=== PATIENT | female | born 1970 | race Caucasian/White ===

== ENCOUNTER 2024-01-24 09:07 | Outpatient (CLI) | payer BC, SELFPAY ==
--- NOTE | 2024-01-24 09:14 | XR_ITS ---
PROCEDURE INFORMATION: Exam: XR Right Wrist Exam date and time: 01/24/2024 9:19 AM Age: 53 years old Clinical indication: Pain; Wrist; Right; Additional info: Right wrist pain TECHNIQUE: Imaging protocol: Radiologic exam of the right wrist. Views: 3 or more views. COMPARISON: No relevant prior studies available. FINDINGS: Bones/joints: Degenerative changes in the carpal bones and radiocarpal joint. There is no evidence of acute fracture.There is no evidence of malalignment or dislocation. Soft tissues: Normal. IMPRESSION: There is no evidence of acute fracture.There is no evidence of malalignment or dislocation.
--- NOTE | 2024-01-24 09:14 | XR_ITS ---
PROCEDURE INFORMATION: Exam: XR Left Wrist Exam date and time: 01/24/2024 9:19 AM Age: 53 years old Clinical indication: Pain; Wrist; Left; Additional info: Left wrist pain TECHNIQUE: Imaging protocol: Radiologic exam of the left wrist. Views: 3 or more views. COMPARISON: No relevant prior studies available. FINDINGS: Bones/joints: There is no evidence of acute fracture.There is no evidence of malalignment or dislocation. Soft tissues: Soft tissue swelling of the wrist IMPRESSION: There is no evidence of acute fracture.There is no evidence of malalignment or dislocation.
== END 2024-01-24 23:59 | disposition home or self-care (01) ==
LOC: RAD 09:11
PROVIDERS: PCP Family Medicine; Visit Provider Orthopaedic Surgery
DX: M25.532 Pain in left wrist (principal); M25.531 Pain in right wrist
CPT/HCPCS: 73110

== ENCOUNTER 2024-02-10 08:57 | Outpatient (CLI) | payer BC, SELFPAY ==
--- NOTE | 2024-02-10 09:57 | ECG_ITS ---
APPROVED REPORT Exam: Resting ECG HR:64 bpm ECG Measurements Heart Rate 64 AXES WY 190 P 38 QRSd 72 QRS 1 QT 364 T 29 QTc 373 Conclusion SINUS RHYTHM LOW QRS VOLTAGE IN PRECORDIAL LEADS [QRS DEFLECTION < 1.0 mV IN CHEST LEADS] BORDERLINE ECG UNCONFIRMED REPORT Electronically signed by : Juancarlos Malin MD 02/24/2024 14:15:10
[2024-02-10 10:02] VITALS: BMI 31.6
[2024-02-10 10:13] LABS: Basophils # 0.1 K/mm3 (0-0.2); Basophils % 1.1 % (0.1-2.0); Eosinophils # 0.1 K/mm3 (0.0-0.4); Eosinophils % 2.4 % (0.1-12.0); Hematocrit 43.5 % (37.0-47.0); Lymphocytes # 1.6 K/mm3 (0.7-4.5); Lymphocytes % 39.1 % (10-50); Mean Corpuscular HGB Conc 34.4 g/dL (31.8-35.4); Mean Corpuscular Hemoglobin 31.6 pg (27.0-31.2); Mean Corpuscular Volume 91.7 fl (81-99); Mean Platelet Volume 9.1 fl (7.4-10.4); Monocytes # 0.2 K/mm3 (0.1-1.0); Monocytes % 5.9 % (1.7-9.3); Neutrophils # 2.1 K/mm3 (1.8-7.8); Neutrophils % 51.5 % (37.0-80.0); Platelet Count 231 K/mm3 (142-424); Red Blood Count 4.74 M/mm3 (4.20-5.40); White Blood Count 4.1 K/mm3 (4.8-10.8)
[2024-02-10 10:21] LABS: Chloride 103 mmol/L (98-107); Potassium 4.1 mmoL/L (3.5-5.1); Sodium 140 mmol/L (136-145)
[2024-02-10 10:24] LABS: Anion Gap 11.1 mEq/L (5-15); Blood Urea Nitrogen 11 mg/dl (7-17); Calcium 9.4 mg/dl (8.4-10.2); Carbon Dioxide 30 mmol/L (22.0-30.0); Creatinine Clearance Estimated 111 mL/min (50-200); Estimated Glomerular Filt Rate 75 ml/min (>60); GFR (African American) 91 ML/MIN (>60); Glucose 114 mg/dl (74-100)
== END 2024-02-10 23:59 | disposition home or self-care (01) ==
LOC: PREOP 08:58
PROVIDERS: Nurse Anesthetist, Certified Registered; PCP Family Medicine; Visit Provider Orthopaedic Surgery
DX: R94.31 Abnormal electrocardiogram [ECG] [EKG] (principal)
CPT/HCPCS: 80048; 85025; 93005

== ENCOUNTER 2024-02-15 07:00 | Day surgery (SDC) | payer BC, SELFPAY ==
[2024-02-10 09:41] VITALS: BMI 31.6
[2024-02-15] VITALS (11 sets, daily range): BP systolic 111–155; BP diastolic 44–91; PULSE 70–85; RESP 14–18; TEMP 36.1–36.6; O2SAT 92–98
[2024-02-15] MEDS: LACTATED RINGERS 1000ML 1,000 ML 100 ML IV (07:23)
--- NOTE | 2024-02-15 07:58 | EXP.ANES.CKL ---
[facility] Disclaimer: The information contained in this section may have been updated after the patient was seen, as this information can be updated by other users. Medical History History of breast implant removal GUERA on CPAP TIA (transient ischemic attack) Surgical History History of breast implant History of abdominoplasty History of History of back surgery Family History Other Family history of hypertension Social History Smoking Status: Never smoker alcohol intake: never substance use type: denies use current occupational status: unemployed and retired Travel in the last 8 weeks: None [facility] Anesthesia Checklist Patient Identification Patient Identification: Arm Band Structural Data Admitted From: Home Planned Operative Procedure/s: Right Carpal Tunnel Release Consent for Planned Operative Procedure(s) Verified: Yes Verified Documents: Surgical Consent and History and Physical NPO Status Verified Time NPO: 00:00 Additional verifications Anesthesia Reactions: No Hx Blood Transfusions: Yes Blood Transfusion Reaction: No Airway Assessment Mallampati Score:: Class III C-Spine Mobility Assessed: Yes TMJ Mobility Assessed: Yes Dentition: Good Dentition Neurological Assessment Level of Consciousness: Awake, Alert and Appropriate Anesthesia Plan Anesthesia Risk discussed: Yes Anesthesia Plan: Verified ASA Class: II Anesthesia Type: General
[2024-02-15] MEDS: CEFAZOLIN SODIUM 2 GM in 0.9 % SODIUM CHLORIDE 100 ML IV (08:20)
[2024-02-15] MEDS: LIDOCAINE 1% W/EPI 1:100,000 20ML VIAL 20 ML (08:42)
--- NOTE | 2024-02-15 08:59 | P.OP_ITS ---
Date of procedure: 02/15/24 Pre-op Diagnosis:: Right carpal tunnel syndrome Post-op Diagnosis:: Same Procedure performed:: Right endoscopic carpal tunnel release Surgeon:: Ebenezer Romero DO FARM CONTRACTOR:: Marcia Bernard Anesthesia: LMA Estimated blood loss (mL): 0 Operative findings:: See dictation Operative note:: Patient identified preoperatively. Right wrist marked with yes my initials. Transported to operative suite. Patient given general anesthesia LMA placed. Right upper extremity prepped and draped normal sterile fashion. Once prepped and draped final operative timeout performed to identify proper patient p rocedure and extremity. Everyone involved the case agreed. There were no counter indications to beginning. Did receive preoperative antibiotics. Marking pen was used to linda plan incision over the volar wrist crease. Esmarch was used to exsanguinate the extremity, pneumatic tourniquet inflated to 250 mmHg. Skin knife is used to incise through skin, dissection is taken down with retractors to identify the most proximal aspect the transverse carpal ligament. Once identified the small dilator followed by the larger dilator followed by the 4.0 mm sled was placed into the carpal tunnel. Transverse carpal ligament clearly seen in the superior aspect of the camera. Probe was used to identify the most distal aspect of the transverse carpal ligament rasp was used to remove soft tissue from the undersurface and a curved blade from the [employer] endoscopic carpal tunnel system was utilized to open transverse carpal ligament. Irrigation of the wound performed skin closed with interrupted 4-0 Monocryl with Steri-Strips sterile hand dressing placed patient waken anesthesia taken recovery in stable condition Condition: stable Disposition: PACU Complications:: None apparent
--- NOTE | 2024-02-15 09:06 | EXP.ANES.I ---
[facility] Anesthesia Record Part I Anesthesia Record I Intake, IV Amount: 400 Hydration: Adequate Estimated blood loss (mL): 5 Urine output (mL): 0 Blood Products used (#): none Blood Pressure: 117/44 SaO2: 92 Pulse Rate: 77 Airway Patency: Patent Respiratory Rate: 14 Temperature: 96.9 F Patient is:: Drowsy, Oral/Nasal airway (9.[address] upon arrival to PACU. Removed @09:04) and Stable Stable to PACU at:: 09:07
--- NOTE | 2024-02-15 14:36 | P.PNANES_ITS ---
[facility] Anesthesia Record Part II Anesthesia Record Part II Discharge Time: 09:32 Destination: Surgical Day Care (OP Surgery) PACU nurse assessment reviewed?: Yes Patient Condition:: Good Anesthesia Complications:: None Swallowing reflex intact?: Yes Airway Patency: Patent Cyanosis?: No Blood Pressure: 124/75 SaO2: 98 Respiratory Rate: 16 Pulse Rate: 73 Temperature: 96.9 F Mental Status: Alert & Oriented Pain level:: 0 Nausea and/or vomitting:: None Intake, IV Amount: 400 Hydration: Adequate
== END 2024-02-15 10:04 | disposition home or self-care (01) ==
PROVIDERS: PCP Family Medicine; Visit Provider Orthopaedic Surgery
PROC: (CPT 64721; principal; 2024-02-15 08:30)
DX: G56.01 Carpal tunnel syndrome, right upper limb (principal)
CPT/HCPCS: 29848; 96374; J0690; J1100; J1885; J2250; J2405; J3010; J7120

== ENCOUNTER 2024-03-14 09:07 | Day surgery (SDC) | payer BC, SELFPAY ==
[2024-03-13 09:30] VITALS: BMI 31.6
[2024-03-14 09:36] VITALS: BP 135/63; PULSE 78; RESP 18; TEMP 36.3; O2SAT 98
[2024-03-14] MEDS: LACTATED RINGERS 1000ML 1,000 ML 100 ML IV (09:48)
--- NOTE | 2024-03-14 11:08 | EXP.ANES.CKL ---
[facility] Disclaimer: The information contained in this section may have been updated after the patient was seen, as this information can be updated by other users. Medical History Sleep apnea History of gastroesophageal reflux (GERD) History of breast implant removal GUERA on CPAP TIA (transient ischemic attack) Surgical History History of breast implant History of abdominoplasty History of History of back surgery Family History Other Family history of hypertension Social History Smoking Status: Never smoker alcohol intake: never substance use type: denies use current occupational status: retired Travel in the last 8 weeks: None Have you lived/traveled outside [place] in past 30 days?: No Contact w/someone who lives/traveled outside US past 30 days?: No Exposure to someone with infectious disease in past 14 days?: No Do you have a fever (greater than 100.4 F or 38 C)?: No Have you tested positive for COVID-19: No Exposed to someone with COVID-19 in past 14 days?: No Do you have a sore throat?: No Do you have a cough?: No Do you have any weakness?: No Are you experiencing any nausea/vomitting?: No Do you have any diarrhea?: No Are you experiencing any unusual bleeding?: No Do you have any muscle aches/pain?: No Do you have any abdominal pain?: No Are you experiencing loss of taste or smell?: No [facility] Anesthesia Checklist Patient Identification Patient Identification: Arm Band Structural Data Admitted From: Home Planned Operative Procedure/s: Left Carpal Tunnel Release Consent for Planned Operative Procedure(s) Verified: Yes Verified Documents: Surgical Consent and History and Physical NPO Status Verified Time NPO: 00:00 Additional verifications Anesthesia Reactions: No Hx Blood Transfusions: Yes Blood Transfusion Reaction: No Airway Assessment Mallampati Score:: Class II C-Spine Mobility Assessed: Yes TMJ Mobility Assessed: Yes Dentition: Good Dentition Neurological Assessment Level of Consciousness: Awake, Alert and Appropriate Anesthesia Plan Anesthesia Risk discussed: Yes Anesthesia Plan: Verified ASA Class: II Anesthesia Type: MAC
[2024-03-14] MEDS: CEFAZOLIN SODIUM 2 GM in 0.9 % SODIUM CHLORIDE 100 ML IV (12:06)
[2024-03-14] MEDS: LIDOCAINE 1% W/EPI 1:100,000 20ML VIAL 20 ML (12:10)
--- NOTE | 2024-03-14 12:21 | P.OP_ITS ---
Date of procedure: 03/14/24 Pre-op Diagnosis:: Left carpal tunnel syndrome Post-op Diagnosis:: Same Procedure performed:: Left endoscopic carpal tunnel release Surgeon:: Ebenezer Romero DO Electronics Engineer(s):: Surya CARLTON BEZEL CUTTER:: Jeanna Ordoñez Anesthesia: MAC and local Estimated blood loss (mL): 0 Operative findings:: See dictation Operative note:: Patient identified preoperatively. Left wrist marked with yes my initials. Transported to operative suite. Patient given sedation Left upper extremity prepped and draped normal sterile fashion. Once prepped and draped final operative timeout performed to identify proper patient procedure and extremity. Everyone involved the case agreed. There were no counter indications to beginning. Did receive preoperative antibiotics. Marking pen was used to linda plan incision over the volar wrist crease. Local anesthesia 1% lidocaine with epinephrine infiltrated to the incision site and transverse carpal ligament. Esmarch was used to exsanguinate the extremity, pneumatic tourniquet inflated to 250 mmHg. Skin knife is used to incise through skin, dissection is taken down with retractors to identify the most proximal aspect the transverse carpal ligament. Once identified the small dilator followed by the larger dilator followed by the 4.0 mm sled was placed into the carpal tunnel. Transverse carpal ligament clearly seen in the superior aspect of the camera. Probe was used to identify the most distal aspect of the transverse carpal ligament rasp was used to remove soft tissue from the undersurface and a curved blade from the [employer] endoscopic carpal tunnel system was utilized to open transverse carpal ligament. Irrigation of the wound performed skin closed with interrupted 4-0 Monocryl with Steri-Strips sterile hand dressing placed patient waken anesthesia taken recovery in stable condition Condition: stable Disposition: PACU Complications:: None apparent
[2024-03-14 12:26] VITALS: BP 127/78; PULSE 103; RESP 20; TEMP 36.3; O2SAT 97
[2024-03-14 12:36] VITALS: BP 128/72; PULSE 85; RESP 20; O2SAT 95
[2024-03-14 12:46] VITALS: BP 134/84; PULSE 84; RESP 20; O2SAT 95
[2024-03-14 12:56] VITALS: BP 144/92; PULSE 79; RESP 20; O2SAT 96
== END 2024-03-14 12:56 | disposition home or self-care (01) ==
PROVIDERS: PCP Family Medicine; Visit Provider Orthopaedic Surgery
PROC: (CPT 64721; principal; 2024-03-14 10:45)
DX: G56.02 Carpal tunnel syndrome, left upper limb (principal)
CPT/HCPCS: 29848; 96374; J0690; J1100; J2250; J2405; J3010; J7120